=== PATIENT | female | born 1965 | race Caucasian/White ===

== ENCOUNTER 2017-02-09 09:51 | Outpatient (CLI) | payer MEDICARE ==
[2011-07-19 07:12] VITALS: BMI 27.4
== END 2017-02-09 12:53 ==
LOC: D.MAMMO 09:51
DX: N63 Unspecified lump in breast (principal)

== ENCOUNTER 2017-03-21 05:56 | Day surgery (SDC) | payer MEDICARE ==
[2017-03-20 12:09] LABS: HEMATOCRIT 41.9 % (36.0-48.0); HEMOGLOBIN 13.5 g/dL (12-16); MCH 29.9 pg (26.0-34.0); MCHC 32.2 g/dL (31.0-37.0); MCV 92.9 fL (80.0-100.0); MEAN PLATELET VOLUME 11.5 fL (7.4-10.4); RBC 4.51 10x6/uL (4.00-5.40); RDW 13.2 % (11.5-14.5); WBC 4.9 10x3/uL (4.8-10.8)
[~2017-03-21] VITALS: Ht 172.7 cm; Wt 84.8 kg
[~2017-03-21 05:56] MED LIST: ADIPEX-P37.5 MG PO; MELATONIN 3 MG1 TAB PO
[2017-03-21 06:51] VITALS: BP 151/78; Ht 172.7 cm; Wt 84.8 kg
[2017-03-21] MEDS ORDERED: HYDROCODON-ACE1 EAC7 PO (09:48)
--- NOTE | 2017-03-22 08:16 | OP ---
PATIENT NAME: EDDIE KAT MEDICAL RECORD: [id number] :65 [facility] DATE: SURGEON: NIGEL RIVERA MD DATE OF OPERATION: 03/21/2017 SURGEON: Nigel Rivera MD. PREOPERATIVE DIAGNOSIS: Left breast mass. POSTOPERATIVE DIAGNOSIS: Left breast mass. PROCEDURE PERFORMED: Excisional biopsy of left breast mass 8 x 6 x 4 cm. ANESTHESIA: General. COMPLICATIONS: None. SPECIMENS: Left breast mass 8 x 6 x 4 cm. Case was clean. ESTIMATED BLOOD LOSS: 20 cc. COMPLICATIONS: None. OPERATIVE COURSE: After consent was obtained, the patient was taken to the operating room and placed in the supine position on the operating table. Next, general anesthesia was given via endotracheal intubation. Thereafter, a timeout was performed that confirmed the correct patient and procedure. The left breast was prepped and draped in typical sterile fashion. A 30 cc of local anesthetic were injected. The linear incision was made over the apex of the mass. Dissection continued with sharp Metzenbaum scissor dissection. The mass was circumferentially dissected out with sharp dissection. The mass extended to the retroareolar region. The mass was excised. It was passed off the field and sent for permanent pathology. The wound bed was then copiously irrigated and suctioned. Careful attention was paid to hemostasis, which was obtained using electrocautery. The wound was closed in 3 layers. The deep subcutaneous tissue was closed with 3-0 Vicryl suture, superficial tissue was closed with 3-0 interrupted Monocryl sutures and skin was closed with 4-0 Monocryl, Mastisol and Steri-Strips. At the end of the case, all needle and instrument counts were correct. No complications occurred. The patient was extubated and transferred to the PACU in stable condition. TRANSINT:[id number] Voice Confirmation ID: [id number] DOCUMENT ID: [id number] NIGEL RIVERA MD at 0816 CC: [id number] DICTATION DATE: 03/21/17 0946 RANGE MANAGER: 03/21/17 1127 [facility] 03/21/17 [place] [address]
== END 2017-03-21 11:40 | disposition home or self-care (01) ==
LOC: D.OPS 05:56 → D.PAN 10:10 → D.OPS 10:10 → D.PAN 10:15 → D.OPS 11:40
PROVIDERS: Anesthesiology
DX: N63 Unspecified lump in breast (principal); Z01.812 Encounter for preprocedural laboratory examination

== ENCOUNTER → 2017-09-12 13:20 | Outpatient (CLI) | payer MEDICARE ==
[2017-03-21 06:51] VITALS: BMI 28.4
[~2017-09-12 13:20] MED LIST changes: +HYDROCODON-ACE1 EAC7 PO
== END | disposition home or self-care (01) ==
LOC: D.MAMMO 08-16 09:30
DX: D48.62 Neoplasm of uncertain behavior of left breast (principal)

== ENCOUNTER 2018-07-29 08:00 | Outpatient (CLI) | payer MEDICARE ==
[2017-03-21 06:51] VITALS: BMI 28.4
== END 2018-07-29 09:00 | disposition home or self-care (01) ==
LOC: D.MAMMO 08:00
DX: Z12.31 Encounter for screening mammogram for malignant neoplasm of breast (principal)

== ENCOUNTER → 2018-08-09 13:54 | Outpatient (CLI) | payer MEDICARE ==
[2017-03-21 06:51] VITALS: BMI 28.4
== END | disposition home or self-care (01) ==
LOC: D.US 11:00
DX: N63.21 Unspecified lump in the left breast, upper outer quadrant (principal)